=== PATIENT | female | born 1990 | race Caucasian/White ===

== ENCOUNTER → 2019-08-03 | Outpatient (CLI) | payer BC, OTHER ==
[~2019-08-03] MED LIST: ARMO50TA3 PO; BCP; CHOL20003 PO; OSLT75C PO; [UNRECOGNIZED DRUG - CODE] MC
--- NOTE | 2019-08-03 16:57 | Diagnostic Imaging Report ---
INDICATION: anatomic survey. TECHNIQUE: Multiple real-time grayscale images were obtained over the gravid uterus. COMPARISON: None FINDINGS: There is a single live intrauterine gestation. The fetus is currently in a breech presentation. The amniotic fluid volume is appropriate and measured an KENNETH of 11 cm. The placenta is located posteriorly without previa. cardiac motion measured at 130 beats per minute. The visualized intracranial contents are unremarkable. There is no ventriculomegaly. Posterior fossa measures appropriate for gestational age. The spine appears intact. Facial profile is unremarkable. Nose and lips appear present. Four-chamber view of the heart is unremarkable. There is no hydronephrosis. A stomach bubble is present. Bladder is unremarkable. There is a three-vessel cord. Four extremities are present. Biometrical measurements are as follows: Biparietal 4.68 cm, age 20 weeks 2 days. Head circumference 17.67 cm, age 20 weeks 2 days. Abdominal circumference 15.25 cm, age 20 weeks 4 days. Femur length 3.35 cm, age 20 weeks 4 days. Sonographic estimate age: 20 weeks 3 days. Sonographic estimated date of delivery: 12/18/2019. Estimated Weight: 354 gm (+/- 52 gm). LMP percentile: 38%. heart rate: 130 beats per minute. number: 1 of 1. IMPRESSION: 1. Single live intrauterine gestation at estimated gestational age of 20 weeks 3 days. This corresponds to an estimate date of delivery of December 18, 2019. 2. Appropriate amniotic fluid index and cardiac motion. 3. Today's anatomic survey appears unremarkable. Dictated by: Dictated on workstation # [id number]
== END ==
LOC: RAD 14:31
PROVIDERS: ATTEND Obstetrics & Gynecology
DX: Z34.92 Encounter for supervision of normal pregnancy, unspecified, second trimester (principal); Z3A.20 20 weeks gestation of pregnancy
CPT/HCPCS: 76805

== ENCOUNTER 2019-09-03 16:11 | Outpatient (CLI) | payer BC ==
[~2019-09-03] VITALS: Ht 162.5 cm; Wt 65.0 kg
[2019-09-03] VITALS (7 sets, daily range): BP systolic 99–121; BP diastolic 54–59
--- NOTE | 2019-09-03 16:00 | NUR ---
CECILY GREEN presented to unit via from ED, accompanied by self, with c/o DECREASED MOVEMENT. CECILY GREEN weighed, gowned, voided, and to bed. EFHM and TOCO applied, VS taken. CECILY GREEN oriented to bed controls, call light, TV, heat, and A/C controls.
[2019-09-03] MEDS ORDERED: TERBUTALINE INJ 1 MG/ML (BRETHINE) AMP SC NR (16:45)
--- NOTE | 2019-09-03 16:45 | NUR ---
DR SILVEIRA CALLED NEW ORDERS RECEIVED.
[2019-09-03] MEDS: LACTATED RINGERS 1,000 ML IV SCH ×2 (16:58→18:35)
--- NOTE | 2019-09-03 19:22 | NUR ---
DR. SILVEIRA CALLED UNIT, UPDATE GIVEN. ORDER RECEIVED TO DISCHARGE PT HOME.
--- NOTE | 2019-09-03 19:40 | NUR ---
IV DC'D. TIP INTACT. GAUZE AND BAND AID APPLIED OVER SITE. DISCHARGE PAPERS PROVIDED AND REVIEWED WITH PT, PT VERBALIZES UNDERSTANDING AND DENIES ANY QUESTIONS AT THIS TIME. PAPER SIGNED. PT'S MOTHER AT THE BEDSIDE.
--- NOTE | 2019-09-03 19:43 | NUR ---
PT DISCHARGED FROM -[facility] TO PERSONAL AUTO VIA AMBULATORY IN STABLE CONDITION ACC BY MOTHER.
--- NOTE | 2019-09-06 08:21 | Physician Query-Final Dx ---
Clinic Account Progress/Dx Physician Query: Please give diagnosis Please give # weeks gestation Date of Service Sep 03, 2019 at 16:11 BERTHA LOWERY Sep 06, 2019 08:21
== END 2019-09-03 19:43 | disposition home or self-care (01) ==
LOC: LDRP 16:11 → WSo 16:11
PROVIDERS: ATTEND Obstetrics & Gynecology
DX: O36.8190 Decreased fetal movements, unspecified trimester, not applicable or unspecified (principal); Z3A.00 Weeks of gestation of pregnancy not specified
CPT/HCPCS: 96360; 96361; 96372; 99213

== ENCOUNTER 2019-12-05 20:14 | Inpatient (IN) | payer BC ==
[~2019-12-05] VITALS: Ht 157.5 cm; Wt 64.7 kg
--- NOTE | 2019-12-05 20:19 | NUR ---
CECILY GREEN presented to unit via ambulation from ED, accompanied by s.o. for induction of labor. CECILY GREEN weighed, gowned, voided, and to bed. EFHM and TOCO applied, VS taken. CECILY GREEN oriented to bed controls, call light, TV, heat, and A/C controls.
[2019-12-05] MEDS ORDERED: LACTATED RINGERS 1,000 ML IV SCH (20:22)
[2019-12-05] MEDS ORDERED: CATHETER FLUSH 10 ML SYR IV PRN (20:30)
[2019-12-05] MEDS ORDERED: MINERAL OIL CONCENTRATE 99.9% 15 ML UDC TOP PRN (20:30)
[2019-12-05] MEDS ORDERED: MISOPROSTOL 100 MCG (CYTOTEC) TAB PO NR (20:30)
[2019-12-05] MEDS ORDERED: TERBUTALINE INJ 1 MG/ML (BRETHINE) AMP SC PRN (20:30)
[2019-12-05 20:35] VITALS: BP 125/81
[2019-12-05 20:51] LABS: BILIRUBIN,URINE NEGATIVE (NEGATIVE); CLARITY,URINE CLEAR; COLOR,URINE YELLOW; GLUCOSE, URINE (UA) NEGATIVE (NEGATIVE); KETONES,URINE NEGATIVE (NEGATIVE); LEUKOCYTE ESTERASE ,URINE NEGATIVE (NEGATIVE); NITRITE,URINE NEGATIVE (NEGATIVE); PH,URINE 6.5 (5-9); PROTEIN,URINE NEGATIVE (NEGATIVE)
[2019-12-05 21:10] LABS: BACTERIA,URINE NEGATIVE /HPF
[2019-12-05 21:17] LABS: BASOPHILS % (AUTO) 0 % (0-10); EOSINOPHILS # (AUTO) 0.1 10^3/uL (0.0-0.3); EOSINOPHILS % (AUTO) 2 % (0-10); HEMATOCRIT 40 % (35-52); HEMOGLOBIN 13.8 G/DL (11.5-16.0); LYMPHOCYTES # (AUTO) 2.5 X 10^3 (1.0-4.0); LYMPHOCYTES % (AUTO) 33 % (12-44); MEAN CORPUSCULAR HEMOGLOBIN 33 PG (25-34); MEAN CORPUSCULAR HGB CONC 35 G/DL (32-36); MEAN CORPUSCULAR VOLUME 94 FL (80-99); MONOCYTES # (AUTO) 0.5 X 10^3 (0.0-1.0); MONOCYTES % (AUTO) 6 % (0-12); NEUTROPHILS # (AUTO) 4.5 X 10^3 (1.8-7.8); NEUTROPHILS % (AUTO) 59 % (42-75); PLATELET COUNT 146 10^3/uL (130-400); RED CELL DISTRIBUTION WIDTH 12.6 % (10.0-14.5); WHITE BLOOD COUNT 7.7 10^3/uL (4.3-11.0)
[2019-12-05] MEDS ORDERED: ARMO150T6 PO (21:30)
[2019-12-05] MEDS ORDERED: LEVO25TA5 PO (21:30)
[2019-12-05] MEDS ORDERED: PREN-142 PO (21:30)
[2019-12-05] MEDS: D5 LR IV SOLUTION 1,000 ML IV SCH (22:00)
[2019-12-06] VITALS (39 sets, daily range): BP systolic 88–147; BP diastolic 51–93
[2019-12-06] MEDS ORDERED: MISOPROSTOL 100 MCG (CYTOTEC) TAB PO SCH (00:30)
[2019-12-06] MEDS ORDERED: HYDROmorphone 2 MG/ML VIAL (DILAUDID) ONE (03:19)
[2019-12-06] MEDS ORDERED: HYDROmorphone 2 MG/ML VIAL (DILAUDID) IV ONE (03:33)
[2019-12-06] MEDS: D5 LR IV SOLUTION 1,000 ML IV SCH (07:21)
--- NOTE | 2019-12-06 08:18 | History & Physical-OB ---
OB - Chief Complaint & HPI Date/Time Date of Admission: Date of Admission: Dec 05, 2019 at 20:14 Date seen by a Provider: Dec 06, 2019 Time Seen by a Provider: 08:10 Chief Complaint/History OB-Reason for Admission/Chief: Induction of Labor Hx : 1 Hx Para: 0 Expected Date of Delivery: Dec 17, 2019 Gestational Age in Weeks: 38 Gestational Age in Days: 2 Admission Nurse Assessment Rev: Yes History of Labs O pos Antibody neg RI HIV NR HBsAg NR GC neg GBS neg Allergies and Home Medications Allergies Coded Allergies: No Known Drug Allergies (Unverified , 04/16/12) Home Medications Vit No.124/Iron/FA 1 Each Tablet, 1 EACH PO DAILY, (Reported) Patient Home Medication List Home Medication List Reviewed: Yes OB - History Hx of Present Care: Yes Ultrasounds: Abnormal US findings (Severe IUGR) Obstetrical Complications: None Medical Complications: None Patient Past Medical History narcolepsy Social History/Family History Recent Infectious Disease Expo: No Alcohol Use: Denies Use Recreational Drug Use: No Immunizations Date of Influenza Vaccine: Jun 26, 2019 OB - Admission Exam Physical Exam Vitals: Vital Signs 12/06/19 12/06/19 01:40 06:30 Temp 36.6 Pulse 62 Resp 16 B/P (MAP) 117/75 (89) O2 Delivery Room Air HEENT: NCAT Heart: Rhythm Normal Lungs: Clear Abdomen: Gravid Extremities: Normal Reflexes: Normal Cervical Dilatation: 3cm Effacement: 75% Station: -1 Membranes: Intact Heart Rate: 130's Accelerations: Accelerations Present Decelerations: No Decelerations Short Term Variability: Present Tuber Machine Operator Variability: Average (6-25) Contractions on Admission: 6-10 Minutes Apart Intensity: Mild Labs Laboratory Tests Test 12/05/19 20:25 12/05/19 20:50 Range/Units Urine Color YELLOW Urine Clarity CLEAR Urine pH 6.5 5-9 Urine Specific [place] 1.010 L 1.016-1.022 Urine Protein NEGATIVE NEGATIVE Urine Glucose (UA) NEGATIVE NEGATIVE Urine Ketones NEGATIVE NEGATIVE Urine Nitrite NEGATIVE NEGATIVE Urine Bilirubin NEGATIVE NEGATIVE Urine Urobilinogen 0.2 < = 1.0 MG/DL Urine Leukocyte Esterase NEGATIVE NEGATIVE Urine RBC (Auto) TRACE-L NEGATIVE Urine RBC NONE /HPF Urine WBC NONE /HPF Urine Squamous Epithelial Cells 2-5 /HPF Urine Crystals NONE /LPF Urine Bacteria NEGATIVE /HPF Urine Casts NONE /LPF Urine Mucus NEGATIVE /LPF Urine Culture Indicated NO White Blood Count 7.7 4.3-11.0 10^3/uL Red Blood Count 4.24 L 4.35-5.85 10^6/uL Hemoglobin 13.8 11.5-16.0 G/DL Hematocrit 40 35-52 % Mean Corpuscular Volume 94 80-99 FL Mean Corpuscular Hemoglobin 33 25-34 PG Mean Corpuscular Hemoglobin Concent 35 32-36 G/DL Red Cell Distribution Width 12.6 10.0-14.5 % Platelet Count 146 130-400 10^3/uL Mean Platelet Volume 12.0 H 7.4-10.4 FL Neutrophils (%) (Auto) 59 42-75 % Lymphocytes (%) (Auto) 33 12-44 % Monocytes (%) (Auto) 6 0-12 % Eosinophils (%) (Auto) 2 0-10 % Basophils (%) (Auto) 0 0-10 % Neutrophils # (Auto) 4.5 1.8-7.8 X 10^3 Lymphocytes # (Auto) 2.5 1.0-4.0 X 10^3 Monocytes # (Auto) 0.5 0.0-1.0 X 10^3 Eosinophils # (Auto) 0.1 0.0-0.3 10^3/uL Basophils # (Auto) 0.0 0.0-0.1 10^3/uL OB - Assessment/Plan/Diagnosis Assessment Assessment: induction of labor Admission Dx 29 yo @ 38.2 Induction of labor IUGR 6th %tile GBS neg Admission Status: Inpatient Order (span 2 midnights) Reason for Inpatient Admission: Induction of labor at term Plan Plan: Induction Induction Method: per Misoprostol Protocol HOLLY HURST DO Dec 06, 2019 08:18
[2019-12-06] MEDS ORDERED: fentaNYL 2 mcg/ml BUPIVA 0.125 100 ML ONE (08:38)
[2019-12-06] MEDS ORDERED: LACTATED RINGERS 1,000 ML IV SCH (09:27)
[2019-12-06] MEDS ORDERED: diphenhydrAMINE 50 MG/ML INJ (BENADRYL) IV PRN (09:30)
[2019-12-06] MEDS ORDERED: ONDANSETRON 4 MG/2 ML (SDV) Z0FRAN IV PRN (09:30)
[2019-12-06] MEDS ORDERED: NALOXONE 0.4 MG/ML 1 ML (NARCAN) VIAL IV PRN ×2 (09:30)
[2019-12-06] MEDS ORDERED: EPIDURAL (fentaNYL 2 MCG/ML BUPIVA 0.125%)100 ML BAG EPI SCH (09:30)
[2019-12-06] MEDS ORDERED: METOCLOPRAMIDE INJ 10 MG/2 ML (REGLAN) IV PRN (09:30)
[2019-12-06] MEDS ORDERED: OXYTOCIN PRE-MIX DRIP 500 ML IV ONE (11:02)
[2019-12-06] MEDS ORDERED: LIDOCAINE/EPI 2% 1:200,00 (XYLOCAINE) 10 ML VIAL ONE (11:02)
[2019-12-06] MEDS: OXYTOCIN PRE-MIX DRIP 500 ML IV SCH ×2 (12:05→12:55)
--- NOTE | 2019-12-06 12:23 | OB Labor & Delivery Record ---
L&D History Date of Service Date of Service: Dec 06, 2019 History Expected Date of Delivery: Dec 17, 2019 Gestational Age in Weeks: 38 Hx : 1 Hx Para: 0 Complications Events: Routine care (IUGR) Operative Indications (Cesarea: N/A-Vaginal Delivery Intrapartal Events: None L&D Stage1 Stage One Onset of Labor - Date: Dec 06, 2019 Monitors and Tracing Monitor Mode: External Heart Rate: 105 Monitor Accelerations: Uniform Monitor Decelerations: Variable Station: -2 Fdc Variability: Average (6-10) Short Term Variability: Present Presentation: Vertex Vital Signs VS - Last 72 Hours, by Label 12/05/19 12/05/19 12/06/19 12/06/19 20:35 20:35 01:40 06:30 Temp 36.6 36.6 36.5 36.6 Pulse 71 71 76 62 Resp 18 18 18 16 B/P (MAP) 125/81 (96) 137/77 (97) 117/75 (89) Pulse Ox 96 96 O2 Delivery Room Air Room Air Room Air Rupture of Membranes Spontaneous Ruture of Membrane: No Amniotic Membrane Rupture Time: 07:55 Amniotic Membrane Fluid Desc.: Clear Vaginal Bleeding Description: Normal Show Induction/Anesthesia Epidural Cath Placement - Time: 0910 Progress/Notes Patient progressed to complete and +2 station with AROM only, no pitocin augmentation. L&D Stage2 Stage Two Stage II Date: Dec 06, 2019 Monitors and Tracing Monitor Mode: External Heart Rate: 105 Monitor Accelerations: Uniform Monitor Decelerations: Variable Conductor Sleeping Car Variability: Average (6-10) Short Term Variability: Present Position: Right Occiput Anterior Presentation: Vertex Cord Descript/Complications Cord Vessel Description: 3 Vessels Delivery Type Delivery Method: Spontaneous Vaginal Anterior Shoulder: Left, Right Episiotomy/Perineal Laceration Laceraction(s)/Extensions: Yes Episiotomy Description: Right Mediolateral Degree (describe repair) RML repaired using 3-0 and 2-0 vicryl suture Condition of Infant Delivery 1 minute Comment: 9 5 minute Comment: 9 Notes Live female infant weight [id number] Condition of Infant Condition of Infant: Living Exam: No Observed Abnormalities Resuscitation Resuscitation: N/A - Spontaneous Resp L&D Stage3 Stage Three Stage III Date: Dec 06, 2019 Pictocin Pitocin Administration Comment: 30 mu wide open at delivery of placenta Placenta Delivery Placenta Delivery: Spontaneous Delivery Summary Summary Estimated blood loss (mL): 400 Attending at delivery: Holly Hurst DO Condition of Delivery Examined: Cervix Examined, Uterus Explored Post Hemorrhage: No Condition of Mother stable Condition of Infant (s) stable HOLLY HURST DO Dec 06, 2019 12:23
[2019-12-06] MEDS ORDERED: HYDROcodone/APAP 5 MG/325 MG (LORTAB) TAB PO PRN (12:30)
[2019-12-06] MEDS ORDERED: MEASLES,MUMPS,RUBELLA 1 EA INJ SQ ONE (12:30)
[2019-12-06] MEDS ORDERED: TETANUS,DIPTH,PERTUSS P/F (BOOSTRIX) 0.5 ML VIAL IM ONE (12:30)
[2019-12-06] MEDS ORDERED: BENZOCAINE/MENTHOL (DERMOPLAST) 60 ML CAN TP PRN (12:30)
[2019-12-06] MEDS ORDERED: DIBUCAINE (NUPERCAINAL) 1% OINT 30 GM TOP PRN (12:30)
[2019-12-06] MEDS ORDERED: WITCH HAZEL(TUCKS) 40 EA JAR TOP PRN (12:30)
[2019-12-06] MEDS ORDERED: CATHETER FLUSH 10 ML SYR IV SCH (14:00)
--- NOTE | 2019-12-06 15:00 | NUR ---
FFU/2, light rubra lochia noted, no clots expressesd. Pericare performed, fresh gown on, pad and panties on. Pt assisted to wheelchair without incident. Pt transferred to PP room 309 via wheelchair accompanied by RN, S.O. and infant. Pt to bed. Pt and S.O. oriented to room and call light. packet explained. Fresh ice water supplied, motrin given. Pt denies needs or concerns at this time.
[2019-12-06] MEDS: IBUPROFEN 600 MG (MOTRIN) TAB PO SCH ×2 (15:10→21:11)
--- NOTE | 2019-12-06 15:30 | NUR ---
Pt assisted up to bathroom per Thalia Rodriguez RN. +void. Pericare performed. Pt assisted back to bed without incident. No needs or complaints voiced.
[2019-12-06] MEDS: DOCUSATE SODIUM 100 MG (COLACE) CAP PO SCH (21:11)
[2019-12-07 02:45] VITALS: BP 101/60
[2019-12-07] MEDS: IBUPROFEN 600 MG (MOTRIN) TAB PO SCH ×2 (02:48→09:00)
[2019-12-07 06:00] LABS: BASOPHILS % (AUTO) 0 % (0-10); EOSINOPHILS # (AUTO) 0.1 10^3/uL (0.0-0.3); EOSINOPHILS % (AUTO) 1 % (0-10); HEMATOCRIT 29 % (35-52); HEMOGLOBIN 9.7 G/DL (11.5-16.0); LYMPHOCYTES # (AUTO) 2.9 X 10^3 (1.0-4.0); LYMPHOCYTES % (AUTO) 26 % (12-44); MEAN CORPUSCULAR HEMOGLOBIN 33 PG (25-34); MEAN CORPUSCULAR HGB CONC 34 G/DL (32-36); MEAN CORPUSCULAR VOLUME 97 FL (80-99); MEAN PLATELET VOLUME 12.1 FL (7.4-10.4); MONOCYTES # (AUTO) 0.7 X 10^3 (0.0-1.0); MONOCYTES % (AUTO) 7 % (0-12); NEUTROPHILS # (AUTO) 7.5 X 10^3 (1.8-7.8); NEUTROPHILS % (AUTO) 66 % (42-75); PLATELET COUNT 118 10^3/uL (130-400); RED CELL DISTRIBUTION WIDTH 12.8 % (10.0-14.5); WHITE BLOOD COUNT 11.3 10^3/uL (4.3-11.0)
[2019-12-07] MEDS ORDERED: PRENATAL VITAMIN 1 EA TAB PO SCH (07:00)
--- NOTE | 2019-12-07 08:56 | Anesthesia-Regional Post-Op ---
Regional Patient Condition Mental Status: Alert, Oriented x3 Circulation: Same as Pre-Op Headache: Absent Sensation: Full Recovery Motor Block: Absent Post Op Complications Complications None Follow Up Care/Instructions Patient Instructions None needed. Anesthesia/Patient Condition Patient is doing well, no complaints, stable vital signs, no apparent adverse anesthesia problems. No complications reported per nursing. ZAC MAR CRNA Dec 07, 2019 08:56
[2019-12-07 08:58] VITALS: BP 107/64
[2019-12-07] MEDS ORDERED: FERROUS SULF 325 MG (IRON) TAB PO SCH (09:00)
[2019-12-07] MEDS: DOCUSATE SODIUM 100 MG (COLACE) CAP PO SCH (09:01)
--- NOTE | 2019-12-07 09:37 | Postpartum Progress Note ---
Note Note Day # 1 Subjective: Patient is without complaints. Ambulating, voiding. Tolerating a regular diet without nausea or vomiting. Normal lochia. Pain is well controlled with oral pain medications. Objective: Physical Exam: General - Alert and oriented, no apparent distress Abdomen - Soft, appropriately tender to palpation, non-distended, fundus firm at umbilicus Extremities - no edema, negative Samia's bilaterally Assessment: PPD 1 NVD Acute blood loss anemia Plan: Routine care. Encourage breast feeding. Encourage ambulation. Ferrous sulfate supplementation. Plan for discharge today Vitals - Labs Vital Signs - I&O Vital Signs Date Time Temp Pulse Resp B/P (MAP) Pulse Ox O2 Delivery O2 Flow Rate FiO2 12/07/19 08:58 36.9 66 18 107/64 (78) 99 Room Air 12/07/19 02:45 37.0 56 18 101/60 (74) 97 12/06/19 23:00 37.2 61 18 88/51 (63) 96 12/06/19 20:00 36.9 60 18 105/52 (69) 97 12/06/19 18:00 37.1 63 18 101/66 (78) 99 Room Air 12/06/19 14:07 93 18 105/73 (84) 12/06/19 13:52 93 18 103/73 (83) 12/06/19 13:37 81 18 109/68 (82) 12/06/19 13:22 84 18 106/66 (79) 12/06/19 13:08 78 18 115/58 (77) 12/06/19 12:52 36.8 88 18 105/62 (76) 12/06/19 12:38 86 18 103/73 (83) 12/06/19 12:22 93 18 114/71 (85) 12/06/19 12:08 89 18 108/55 (72) 12/06/19 11:55 93 18 147/65 (92) 12/06/19 11:40 67 18 132/85 (101) 12/06/19 11:25 107 18 123/84 (97) 100 Non Rebreather 10.00 12/06/19 11:10 68 18 106/72 (83) 12/06/19 10:55 37.1 69 18 113/71 (85) 100 Room Air 12/06/19 10:40 60 18 126/72 (90) 100 Room Air 12/06/19 10:20 66 18 131/73 (92) 100 Room Air 12/06/19 10:15 70 18 137/75 (95) 100 Room Air 12/06/19 10:10 79 18 132/93 (106) 99 Non Rebreather 10.00 12/06/19 10:05 61 18 143/88 (106) 100 Non Rebreather 10.00 12/06/19 09:57 51 18 133/67 (89) 100 12/06/19 09:54 65 18 109/72 (84) 100 12/06/19 09:51 67 18 106/72 (83) 100 12/06/19 09:48 47 18 136/65 (88) 99 12/06/19 09:45 63 18 111/72 (85) 98 12/06/19 09:42 67 18 109/70 (83) 93 12/06/19 09:39 56 18 106/63 (77) 97 Labs Laboratory Tests 12/07/19 05:35: White Blood Count 11.3H, Red Blood Count 2.96L, Hemoglobin 9.7#L, Hematocrit 29L , Mean Corpuscular Volume 97, Mean Corpuscular Hemoglobin 33, Mean Corpuscular Hemoglobin Concent 34, Red Cell Distribution Width 12.8, Platelet Count 118L, Mean Platelet Volume 12.1H, Neutrophils (%) (Auto) 66, Lymphocytes (%) (Auto) 26, Monocytes (%) (Auto) 7, Eosinophils (%) (Auto) 1, Basophils (%) (Auto) 0, Neutrophils # (Auto) 7.5, Lymphocytes # (Auto) 2.9, Monocytes # (Auto) 0.7, Eosinophils # (Auto) 0.1, Basophils # (Auto) 0.0 HOLLY HURST DO Dec 07, 2019 09:37
[2019-12-07] MEDS ORDERED: IBUP-844 PO (09:40)
[2019-12-07] MEDS ORDERED: BENZ78AE2 TP (09:40)
[2019-12-07] MEDS ORDERED: HYDR-83 PO (09:40)
[2019-12-07] MEDS ORDERED: DCS100C PO (09:40)
[2019-12-07] MEDS ORDERED: FERR325T18 PO (09:40)
[2019-12-07] MEDS ORDERED: DIBU30OI TOP (09:40)
--- NOTE | 2019-12-07 09:41 | Discharge Inst-Women's Service ---
Discharge Inst-Women's Serv Depart Medication/Instructions New, Converted or Re-Newed RX: RX on Chart Final Diagnosis PPD 1 NVD, Acute blood loss anemia Problems Reviewed?: Yes Consults/Follow Up Additional Follow Up: Yes Activity Activity: Activity as Tolerated Driving Instructions: No Driving for 1 Week NO SMOKING: NO SMOKING Nothing Inside Vagina: No Douching, No [place], No Tampons Diet Discharge Diet: No Restrictions Symptoms to Report to : Bleeding Excessive, Pain Increased, Fever Over 101 Degrees F, Vaginal Bleeding Increase, Questions/Concerns For Any Problems or Questions: Contact Your Physician HOLLY HURST DO Dec 07, 2019 09:41
--- NOTE | 2019-12-07 15:23 | NUR ---
Discharge instructions explained to pt with copy provided to pt along with prescriptions. Pt notified of need to schedule follow up appt. Pt verbalizes understanding of instructions and signs to verify. Pt denies needs or concerns at this time. Encouraged to call when ready for dismissal. Addendum: 12/07/19 at 1657 by PAYAL MALDONADO RN extra marah pads and bath wipes provided per pt request
--- NOTE | 2019-12-07 16:35 | NUR ---
Pt ambulates off unit to private vehicle with all personal belongings accompanied by S.O., RN., and . No s/s of distress noted.
== END 2019-12-07 16:35 | disposition home or self-care (01) | DRG 806 ==
LOC: LDRP 20:14
PROVIDERS: ADMIT Obstetrics & Gynecology; ATTEND Obstetrics & Gynecology
PROC: 10E0XZZ Delivery of Products of Conception, External Approach (ICD-10-PCS; principal; 2019-12-06)
PROC: 3E0P7VZ Introduction of Hormone into Female Reproductive, Via Natural or Artificial Opening (ICD-10-PCS; 2019-12-06)
PROC: 10907ZC Drainage of Amniotic Fluid, Therapeutic from Products of Conception, Via Natural or Artificial Opening (ICD-10-PCS; 2019-12-06)
PROC: 0W8NXZZ Division of Female Perineum, External Approach (ICD-10-PCS; 2019-12-06)
DX: O36.5930 Maternal care for other known or suspected poor fetal growth, third trimester, not applicable or unspecified (principal); Z37.0 Single live birth; D62 Acute posthemorrhagic anemia; O90.81 Anemia of the puerperium; Z3A.38 38 weeks gestation of pregnancy
CPT/HCPCS: 36415; 81000; 85025; 86850; 86900; 86901

== ENCOUNTER → 2022-08-11 | Outpatient (CLI) | payer BC ==
[~2022-08-11] MED LIST changes: +ACHD5005 PO; +ARMO150T6 PO; +BENZ78AE5 TP; +DIBU30OI TOP; +DOCU-239 PO; +FERR325T18 PO; +IBUP-844 PO; +LEVO25TA5 PO; +PREN-142 PO
--- NOTE | 2022-08-11 21:54 | Diagnostic Imaging Report ---
INDICATION: survey. TECHNIQUE: Multiple real-time grayscale images were obtained over the gravid uterus. COMPARISON: None. FINDINGS: There is a single live fetus in cephalic presentation. heart motion was noted and a rate of 142 BPM was recorded. There were no abnormalities identified. The placenta is posterior and low-lying. The amniotic fluid volume is within normal limits and the KENNETH is 11.5. During the evaluation of the amniotic fluid a band of increased echogenicity was seen extending through the fluid. I suspect that this is related to unfused amnion. However, generally the amnion fuses by 12-14 weeks. The etiology of the unfused amnion is not certain. This finding has been shown to have some correlation with anomalies. However the survey shows no abnormality. There is no evidence for entrapment of the extremities by the suspected and unfused amnion to suggest the Amniotic Band Syndrome. Even so, a short-term (2-4 week) follow-up ultrasound exam would be recommended for further study. The fFetal growth parameters are fairly uniform. Biometrical measurements are as follows: Biparietal 4.44 cm, age 19 weeks 3 days. Head circumference 16.38 cm, age 19 weeks 1 days. Abdominal circumference 14.10 cm, age 19 weeks 4 days. Femur length 2.81 cm, age 18 weeks 5 days. Sonographic estimate age: 19 weeks 2 days. Sonographic estimated date of delivery: 01/03/2023. Estimated Weight: 273 gm (+/- 40 gm). LMP percentile: 27%. heart rate: 142 beats per minute. number: 1 of 1. IMPRESSION: 1. There is a single live fetus of approximately 19 weeks 2 days gestation +/- 1.5 weeks. EDC is 01/03/2023. 2. There were no abnormalities identified. 3. The band of increased density extending through the amniotic fluid volume is most likely due to unfused amnion. Considerations and recommendations as above. 4. The growth parameters are fairly uniform. 5. These results were discussed with Dr. Roberto Bar. Dictated by: Dictated on workstation # [id number]
== END ==
LOC: RAD 15:06
PROVIDERS: ATTEND Nurse Practitioner Women's Health
DX: Z34.02 Encounter for supervision of normal first pregnancy, second trimester (principal); Z3A.19 19 weeks gestation of pregnancy
CPT/HCPCS: 76805

== ENCOUNTER → 2022-11-25 | Outpatient (CLI) | payer BC ==
--- NOTE | 2022-11-25 12:36 | Diagnostic Imaging Report ---
INDICATION: Evaluate growth. TECHNIQUE: Multiple real-time grayscale images were obtained over the gravid uterus. COMPARISON: None. FINDINGS: There is a single live fetus in a cephalic presentation. heart rate was recorded at 118 BPM. Placenta is posterior. No previa is detected. Amniotic fluid volume and index is 10.9 cm. Cervical length is 3.9 cm. A biophysical profile was performed with a score of 8/8. Biometrical measurements are as follows: Biparietal 8.53 cm, age 34 weeks 3 days. Head circumference 31.83 cm, age 35 weeks 6 days. Abdominal circumference 30.23 cm, age 34 weeks 2 days. Femur length 6.40 cm, age 33 weeks 1 days. Sonographic estimate age: 34 weeks 3 days. Sonographic estimated date of delivery: 01/03/2023. Estimated Weight: 2340 gm (+/- 342 gm). LMP percentile: 31%. heart rate: 118 beats per minute. number: 1 of 1. IMPRESSION: 1. Single live IUP of approximately 34 to 35 weeks gestational age with estimated date of confinement sonographically of 01/03/2023. 2. Normal biophysical profile score of 8/8. Dictated by: Dictated on workstation # [id number]
== END ==
LOC: RAD 08:38
PROVIDERS: ATTEND Nurse Practitioner Women's Health
DX: Z87.59 Personal history of other complications of pregnancy, childbirth and the puerperium (principal)
CPT/HCPCS: 76805; 76819

== ENCOUNTER 2022-12-21 03:32 | Inpatient (IN) | payer BC ==
[~2022-12-21] VITALS: Ht 157.5 cm; Wt 65.5 kg
[2022-12-21] VITALS (14 sets, daily range): BP systolic 100–125; BP diastolic 56–81
[2022-12-21] MEDS ORDERED: D5 LR IV SOLUTION 1,000 ML IV SCH (03:45)
[2022-12-21] MEDS ORDERED: D5 LR IV SOLUTION 1,000 ML IV ONE (03:52)
[2022-12-21 04:14] LABS: BASOPHILS # (AUTO) 0.1 10^3/uL (0.0-0.1); BASOPHILS % (AUTO) 1 % (0-10); EOSINOPHILS # (AUTO) 0.2 10^3/uL (0.0-0.3); EOSINOPHILS % (AUTO) 2 % (0-10); HEMATOCRIT 45 % (35-52); LYMPHOCYTES # (AUTO) 3.9 10^3/uL (1.0-4.0); LYMPHOCYTES % (AUTO) 41 % (12-44); MEAN CORPUSCULAR HEMOGLOBIN 33 pg (25-34); MEAN CORPUSCULAR HGB CONC 34 g/dL (32-36); MEAN CORPUSCULAR VOLUME 96 fL (80-99); MEAN PLATELET VOLUME 12.4 fL (9.0-12.2); MONOCYTES % (AUTO) 10 % (0-12); NEUTROPHILS # (AUTO) 4.5 10^3/uL (1.8-7.8); NEUTROPHILS % (AUTO) 47 % (42-75); PLATELET COUNT 146 10^3/uL (130-400); WHITE BLOOD COUNT 9.7 10^3/uL (4.3-11.0)
[2022-12-21] MEDS ORDERED: OXYTOCIN PRE-MIX DRIP 500 ML IV ONE ×2 (04:38→05:15)
[2022-12-21] MEDS ORDERED: LIDOCAINE 1% INJ 10 ML VIAL ONE (04:41)
[2022-12-21] MEDS ORDERED: KETOROLAC 30 MG/ML VIAL ONE (04:45)
[2022-12-21] MEDS ORDERED: LIDOCAINE 1% INJ 10 ML VIAL INJ ONE ×2 (05:00→05:30)
[2022-12-21] MEDS ORDERED: KETOROLAC 30 MG/ML VIAL IVP ONE (05:00)
--- NOTE | 2022-12-21 05:13 | History & Physical-OB ---
OB - Chief Complaint & HPI Date/Time Date of Admission: Date of Admission: Dec 21, 2022 at 03:50 Date seen by a Provider: Dec 21, 2022 Time Seen by a Provider: 04:05 Chief Complaint/History OB-Reason for Admission/Chief: Onset of Labor Hx : 2 Hx Para: 1 Expected Date of Delivery: Jan 02, 2023 Gestational Age in Weeks: 38 Gestational Age in Days: 2 Admission Nurse Assessment Rev: Yes History of Labs O pos Antibody neg RI RPR NR HBsAg NR HIV NR GC neg GBS neg Allergies and Home Medications Allergies Coded Allergies: No Known Drug Allergies (Unverified , 04/16/12) Patient Home Medication List Home Medication List Reviewed: Yes Armodafinil (Armodafinil) 150 Mg Tablet, 75 MG PO, (Reported) Entered as Reported by: CHEYANNE PRASAD on 12/05/192129 Last Action: Reviewed Levothyroxine Sodium (Levothyroxine Sodium) 25 Mcg Tablet, 25 MCG PO, (Reported) Entered as Reported by: CHEYANNE PRASAD on 12/05/192129 Last Action: Reviewed Vit No.124/Iron/FA ( Vitamin Tablet) 1 Each Tablet, 1 EACH PO DAILY, (Reported) Entered as Reported by: CHEYANNE PRASAD on 12/05/192129 Last Action: Reviewed Discontinued Medications Benzocaine/Menthol (Dermoplast Pain Relieving [place]) 78 Gm Aerosol, 56 ML TP UD PRN for PAIN- SEE INSTRUCTIONS Discontinued Reason: No Longer Taking Prescribed by: HOLLY HURST on 12/07/19939 Last Action: Discontinued Dibucaine (Dibucaine) 30 Gm Oint, 0 GM TOP UD PRN for PAIN- SEE INSTRUCTIONS Discontinued Reason: No Longer Taking Prescribed by: HOLLY HURST on 12/07/19939 Last Action: Discontinued Docusate Sodium (Dok) 100 Mg Capsule, 100 MG PO BID Discontinued Reason: No Longer Taking Prescribed by: HOLLY HURST on 12/07/19939 Last Action: Discontinued Ferrous Sulfate (Ferrous Sulfate) 325 Mg Tablet, 325 MG PO DAILY Discontinued Reason: No Longer Taking Prescribed by: HOLLY HURST on 12/07/19939 Last Action: Discontinued Hydrocodone/Acetaminophen (Hydrocodone-Acetamin 5-325 mg) 1 Each Tablet, 1 TAB PO Q4H PRN for PAIN-MODERATE (5-7) Discontinued Reason: No Longer Taking Prescribed by: HOLLY Freire ARIS on 12/07/19939 Last Action: Discontinued Ibuprofen (Ibu) 600 Mg Tablet, 600 MG PO Q6HR Discontinued Reason: No Longer Taking Prescribed by: HOLLY Freire ARIS on 12/07/19939 Last Action: Discontinued OB - History Hx of Present Care: Yes Ultrasounds: Abnormal US findings (SGA/10th percentile IUGR without severe change noted. 02/17 BPP yesterday) Obstetrical Complications: None Medical Complications: None Patient Past Medical History narcolepsy OB - Admission Exam Physical Exam Vitals: Vital Signs 12/21/22 03:50 Temp 36.9 Pulse 61 Resp 22 Pulse Ox 98 O2 Delivery Room Air HEENT: NCAT Heart: Rhythm Normal Lungs: Clear Abdomen: Gravid Extremities: Normal Reflexes: Normal Cervical Dilatation: 5cm Effacement: 100% Station: -1 Membranes: Intact Heart Rate: 130's Accelerations: Accelerations Present Decelerations: No Decelerations Short Term Variability: Present Puncher And Fastener Variability: Average (6-25) Contractions on Admission: < 5 Minutes Apart Intensity: Mild Labs Laboratory Tests Test 12/21/22 04:00 12/21/22 04:16 Range/Units White Blood Count 9.7 4.3-11.0 10^3/uL Red Blood Count 4.62 3.80-5.11 10^6/uL Hemoglobin 15.0 11.5-16.0 g/dL Hematocrit 45 35-52 % Mean Corpuscular Volume 96 80-99 fL Mean Corpuscular Hemoglobin 33 25-34 pg Mean Corpuscular Hemoglobin Concent 34 32-36 g/dL Red Cell Distribution Width 12.5 10.0-14.5 % Platelet Count 146 130-400 10^3/uL Mean Platelet Volume 12.4 H 9.0-12.2 fL Immature Granulocyte % (Auto) 0 % Neutrophils (%) (Auto) 47 42-75 % Lymphocytes (%) (Auto) 41 12-44 % Monocytes (%) (Auto) 10 0-12 % Eosinophils (%) (Auto) 2 0-10 % Basophils (%) (Auto) 1 0-10 % Neutrophils # (Auto) 4.5 1.8-7.8 10^3/uL Lymphocytes # (Auto) 3.9 1.0-4.0 10^3/uL Monocytes # (Auto) 1.0 0.0-1.0 10^3/uL Eosinophils # (Auto) 0.2 0.0-0.3 10^3/uL Basophils # (Auto) 0.1 0.0-0.1 10^3/uL Immature Granulocyte # (Auto) 0.0 0.0-0.1 10^3/uL OB - Assessment/Plan/Diagnosis Assessment Assessment: active labor Admission Dx 32 yo @ 38.2 Active labor GBS neg Admission Status: Inpatient Order (span 2 midnights) Reason for Inpatient Admission: Active labor at 38 weeks Plan Plan: Expectant Management HOLLY HURST DO Dec 21, 2022 05:13
[2022-12-21] MEDS ORDERED: TETANUS,DIPTH,PERTUSS P/F (BOOSTRIX) 0.5 ML VIAL IM ONE (05:15)
[2022-12-21] MEDS ORDERED: NALOXONE 0.4 MG/ML 1 ML (NARCAN) VIAL IV PRN (05:15)
[2022-12-21] MEDS ORDERED: HYDROcodone/APAP 5 MG/325 MG (LORTAB) TAB PO PRN (05:15)
[2022-12-21] MEDS ORDERED: IBUPROFEN 600 MG (MOTRIN) TAB PO SCH (05:15)
[2022-12-21] MEDS ORDERED: MEASLES,MUMPS,RUBELLA 1 EA INJ SQ ONE (05:15)
[2022-12-21] MEDS ORDERED: BENZOCAINE/MENTHOL (DERMOPLAST) 56 ML CAN TP PRN (05:15)
--- NOTE | 2022-12-21 05:16 | OB Labor & Delivery Record ---
L&D History Date of Service Date of Service: Dec 21, 2022 History Expected Date of Delivery: Jan 02, 2023 Gestational Age in Weeks: 38 Hx : 2 Hx Para: 1 Complications Events: Routine care (IUGR) Operative Indications (Cesarea: N/A-Vaginal Delivery Intrapartal Events: Precipitous Labor < 3 hrs L&D Stage1 Stage One Onset of Labor - Date: Dec 21, 2022 Monitors and Tracing Monitor Mode: External Monitor Accelerations: Uniform Monitor Decelerations: Variable Custodial Variability: Average (6-10) Short Term Variability: Present Presentation: Vertex Vital Signs VS - Last 72 Hours, by Label 12/21/22 03:50 Temp 36.9 Pulse 61 Resp 22 Pulse Ox 98 O2 Delivery Room Air Rupture of Membranes Spontaneous Ruture of Membrane: Yes Amniotic Membrane Rupture Time: 04:33 Amniotic Membrane Fluid Desc.: Clear Vaginal Bleeding Description: Normal Show Progress/Notes Patient progressed precipitously to complete and + 3 station L&D Stage2 Stage Two Stage II Date: Dec 21, 2022 Monitors and Tracing Monitor Mode: External Monitor Accelerations: Uniform Monitor Decelerations: Variable Custodial Variability: Average (6-10) Short Term Variability: Present Position: Right Occiput Anterior Presentation: Vertex Cord Descript/Complications Cord Vessel Description: 3 Vessels Complications tight nuchal cord reduced at the perineum Delivery Type Delivery Method: Spontaneous Vaginal Anterior Shoulder: Left Episiotomy/Perineal Laceration Laceraction(s)/Extensions: Yes Episiotomy Description: Perineal Extension/lac, 2nd degree Degree (describe repair) laceration repaired using 3-0 rapide and 2-0 vicryl suture. Condition of Delivery 1 minute Comment: 8 5 minute Comment: 9 Notes Live female weight 6lbs 9oz Condition of Condition of Infant: Living Exam: No Observed Abnormalities Resuscitation Resuscitation: N/A - Spontaneous Resp L&D Stage3 Stage Three Stage III Date: Dec 21, 2022 Pictocin Pitocin Administration Comment: 30 mu wide open after delivery of placenta Placenta Delivery Placenta Delivery: Spontaneous Delivery Summary Summary Estimated blood loss (mL): 350 Attending at delivery: Holly Hurst DO Condition of Delivery Examined: Cervix Examined, Uterus Explored Post Hemorrhage: No Condition of Mother stable Condition of (s) stable HOLLY HURST DO Dec 21, 2022 05:16
[2022-12-21 05:20] LABS: BILIRUBIN,URINE NEGATIVE (NEGATIVE); CLARITY,URINE CLEAR; COLOR,URINE YELLOW; GLUCOSE, URINE (UA) NEGATIVE (NEGATIVE); KETONES,URINE NEGATIVE (NEGATIVE); LEUKOCYTE ESTERASE ,URINE 1+ (NEGATIVE); NITRITE,URINE NEGATIVE (NEGATIVE); PH,URINE 7.5 (5-9); PROTEIN,URINE NEGATIVE (NEGATIVE)
[2022-12-21 05:44] LABS: AMORPHOUS SEDIMENT,UR MOD AMOR PHOSPHATE /LPF; BACTERIA,URINE FEW /HPF
[2022-12-21] MEDS ORDERED: CATHETER FLUSH 10 ML SYR IV SCH ×2 (06:00)
[2022-12-21] MEDS: OXYTOCIN PRE-MIX DRIP 500 ML IV SCH ×2 (06:06→06:09)
[2022-12-21] MEDS ORDERED: PRENATAL VITAMIN 1 EA TAB PO SCH ×2 (07:00→21:00)
[2022-12-21] MEDS: WITCH HAZEL(TUCKS) 40 EA JAR TOP PRN (07:05)
[2022-12-21] MEDS: FERROUS SULF 325 MG (IRON) TAB PO SCH (08:37)
[2022-12-21] MEDS: ACETAMINOPHEN 500 MG TAB (TYLENOL) PO PRN ×2 (08:38→15:05)
[2022-12-21] MEDS: DOCUSATE SODIUM 100 MG (COLACE) CAP PO SCH ×2 (08:38→21:02)
[2022-12-21] MEDS: DIBUCAINE 1% OINTMENT 28 GM TUBE TOP PRN (08:39)
[2022-12-21] MEDS: IBUPROFEN 600 MG (MOTRIN) TAB PO SCH ×2 (13:10→18:26)
[2022-12-22 00:07] VITALS: BP 93/62
[2022-12-22] MEDS: IBUPROFEN 600 MG (MOTRIN) TAB PO SCH ×2 (00:07→05:11)
[2022-12-22] MEDS: WITCH HAZEL(TUCKS) 40 EA JAR TOP PRN (00:09)
[2022-12-22] MEDS: DIBUCAINE 1% OINTMENT 28 GM TUBE TOP PRN (00:10)
[2022-12-22 05:11] VITALS: BP 98/58
[2022-12-22 05:56] LABS: HEMOGLOBIN 11.6 g/dL (11.5-16.0); MEAN CORPUSCULAR VOLUME 97 fL (80-99)
[2022-12-22 05:58] LABS: BASOPHILS % (AUTO) 0 % (0-10); EOSINOPHILS # (AUTO) 0.2 10^3/uL (0.0-0.3); EOSINOPHILS % (AUTO) 2 % (0-10); HEMATOCRIT 34 % (35-52); LYMPHOCYTES # (AUTO) 3.2 10^3/uL (1.0-4.0); LYMPHOCYTES % (AUTO) 33 % (12-44); MEAN CORPUSCULAR HEMOGLOBIN 33 pg (25-34); MEAN CORPUSCULAR HGB CONC 35 g/dL (32-36); MEAN PLATELET VOLUME 12.2 fL (9.0-12.2); MONOCYTES # (AUTO) 0.6 10^3/uL (0.0-1.0); MONOCYTES % (AUTO) 6 % (0-12); NEUTROPHILS # (AUTO) 5.7 10^3/uL (1.8-7.8); NEUTROPHILS % (AUTO) 58 % (42-75); PLATELET COUNT 121 10^3/uL (130-400); WHITE BLOOD COUNT 9.8 10^3/uL (4.3-11.0)
--- NOTE | 2022-12-22 06:48 | Postpartum Progress Note ---
PARAM WARREN 12/22/22 0648: Note Note Day # 1 Subjective: Patient is without complaints. Ambulating, voiding. Tolerating a regular diet without nausea or vomiting. Normal lochia. Pain is well controlled with oral pain medications. Objective: Physical Exam: General - Alert and oriented, no apparent distress Abdomen - Soft, appropriately tender to palpation, non-distended, fundus firm at umbilicus Extremities - no edema, negative Samia's bilaterally Assessment: post- day # 2, status post vaginal delivery. Recovering well, hemodynamically stable. Thrombocytopenia Plan: Routine care. Encourage breast feeding. Encourage ambulation. Ferrous sulfate supplementation. Plan for discharge 12/22/22 Vitals - Labs Vital Signs - I&O Vital Signs Date Time Temp Pulse Resp B/P (MAP) Pulse Ox O2 Delivery O2 Flow Rate FiO2 12/22/22 05:11 36.6 58 18 98/58 (71) 96 Room Air 12/22/22 00:07 36.6 56 18 93/62 (72) 96 Room Air 12/21/22 21:00 36.6 59 18 109/65 (80) 96 Room Air 12/21/22 17:00 36.8 50 18 124/56 (78) 96 Room Air 12/21/22 13:00 36.7 53 18 124/74 (91) 99 Room Air 12/21/22 08:45 37.0 75 18 113/59 (77) 100 Room Air 12/21/22 06:59 36.2 83 20 100/65 (77) 100 Room Air Labs Laboratory Tests 12/22/22 05:26: White Blood Count 9.8, Red Blood Count 3.48L, Hemoglobin 11.6#, Hematocrit 34L, Mean Corpuscular Volume 97, Mean Corpuscular Hemoglobin 33, Mean Corpuscular Hemoglobin Concent 35, Red Cell Distribution Width 12.7, Platelet Count 121L, Mean Platelet Volume 12.2, Immature Granulocyte % (Auto) 1, Neutrophils (%) (Auto) 58, Lymphocytes (%) (Auto) 33, Monocytes (%) (Auto) 6, Eosinophils (%) (Auto) 2, Basophils (%) (Auto) 0, Neutrophils # (Auto) 5.7, Lymphocytes # (Auto) 3.2, Monocytes # (Auto) 0.6, Eosinophils # (Auto) 0.2, Basophils # (Auto) 0.0, Immature Granulocyte # (Auto) 0.1, Percent Immature Platelet Fraction 9.3H HOLLY HURST DO 12/22/22 0709: Note Note Verification and Attestation of Medical Student E/M Service A medical student performed and documented this service in my presence. I reviewed and verified all information documented by the medical student and made modifications to such information, when appropriate. I personally performed the physical exam and medical decision making. Holly Hurst, Dec 22, 2022,07:09 PARAM WARREN Dec 22, 2022 06:48 HOLLY HURST DO Dec 22, 2022 07:09
--- NOTE | 2022-12-22 07:10 | Discharge Inst-Women's Service ---
Discharge Inst-Women's Serv Depart Medication/Instructions New, Converted or Re-Newed RX: Transmitted to Pharmacy Final Diagnosis PPD 1 NVD Problems Reviewed?: Yes Consults/Follow Up Additional Follow Up: Yes Orders/Referrals Dr. Hurst in 6 weeks Activity Activity: Activity as Tolerated Driving Instructions: No Driving for 1 Week NO SMOKING: NO SMOKING Nothing Inside Vagina: No Douching, No Miner, No Tampons Diet Discharge Diet: No Restrictions Symptoms to Report to : Bleeding Excessive, Pain Increased, Fever Over 101 Degrees F, Vaginal Bleeding Increase, Questions/Concerns For Any Problems or Questions: Contact Your Physician HOLLY HURST DO Dec 22, 2022 07:10
[2022-12-22] MEDS ORDERED: DOCU100C37 PO (07:11)
[2022-12-22] MEDS ORDERED: DIBU30OI TOP (07:11)
[2022-12-22] MEDS ORDERED: ACHD5005 PO (07:11)
[2022-12-22] MEDS ORDERED: FERR325T24 PO (07:11)
[2022-12-22] MEDS ORDERED: IBUP-844 PO (07:11)
[2022-12-22] MEDS ORDERED: BENZ78AE5 TP (07:11)
[2022-12-22 08:31] VITALS: BP 100/58
[2022-12-22] MEDS: FERROUS SULF 325 MG (IRON) TAB PO SCH (08:31)
[2022-12-22] MEDS: DOCUSATE SODIUM 100 MG (COLACE) CAP PO SCH (08:31)
== END 2022-12-22 12:00 | disposition home or self-care (01) | DRG 806 ==
LOC: LDRP 03:32 → WSo 03:32 → LDRP 03:50
PROVIDERS: ADMIT Obstetrics & Gynecology; ATTEND Obstetrics & Gynecology
PROC: 10E0XZZ Delivery of Products of Conception, External Approach (ICD-10-PCS; principal; 2022-12-21)
PROC: 0KQM0ZZ Repair Perineum Muscle, Open Approach (ICD-10-PCS; 2022-12-21)
PROC: 0W8NXZZ Division of Female Perineum, External Approach (ICD-10-PCS; 2022-12-21)
DX: O36.5930 Maternal care for other known or suspected poor fetal growth, third trimester, not applicable or unspecified (principal); O99.354 Diseases of the nervous system complicating childbirth; Z37.0 Single live birth; Z3A.38 38 weeks gestation of pregnancy; O70.1 Second degree perineal laceration during delivery; O69.81X0 Labor and delivery complicated by cord around neck, without compression, not applicable or unspecified; O62.3 Precipitate labor; O72.3 Postpartum coagulation defects; D69.6 Thrombocytopenia, unspecified; G47.419 Narcolepsy without cataplexy
CPT/HCPCS: 36415; 81000; 85025; 86780; 86850; 86900; 86901; 87088